=== PATIENT | male | born 1955 | race African-American/Black ===

== ENCOUNTER 2018-01-01 23:34 | Emergency (ER) | payer OTHER ==
[~2018-01-01] VITALS: Ht 188 cm; Wt 117.9 kg
[~2018-01-01 23:34] MED LIST: AMLO2.5T PO; ASPI-1169 PO; BACL10TA PO; SIMV20TA6 PO
--- NOTE | 2018-01-02 00:22 | NUR ---
PT SPEAKING WITH BELÉN
--- NOTE | 2018-01-02 00:58 | NUR ---
DR ROMERO ASKED FOR RN TO ADD PSYCH EVAL ORDER SET; ORDERS PLACED.
--- NOTE | 2018-01-02 01:10 | NUR ---
PTAMBULATORY TOER BED 10. BIBSELF C/O +SI WITHOUT PLAN, HEARING VOICES. PT PLACED ON DRY CANS BACK TENDER. VSS/RESP EVEN UNLABORED/NAD NOTED/SKIN WARM AND DRY/AFEBRILE/DENIES N-V-D/AOX4. AWAITNG MD GALARZA.
--- NOTE | 2018-01-02 01:14 | NUR ---
SUPERVISOR POLE YARD AT BEDSIDE FOR BLOOD DRAW
[2018-01-02 01:16] LABS: APPEARANCE,URINE CLEAR (CLEAR); BILIRUBIN,URINE NEGATIVE (NEGATIVE); BLOOD, URINE NEGATIVE Ery/uL (NEGATIVE); COLOR,URINE YELLOW (YELLOW); KETONES,URINE NEGATIVE (NEGATIVE); LEUKOCYTE ESTERASE ,URINE NEGATIVE (NEGATIVE); NITRITE, URINE NEGATIVE (NEGATIVE); PH,URINE 5.5 (5.0-8.0); PROTEIN,URINE 1+ mg/dl (NEGATIVE); UGLUCOSE NEGATIVE (NEGATIVE); UROBILINOGEN,URINE 0.2 EU/dL (0.2)
--- NOTE | 2018-01-02 01:17 | NUR ---
URINE SPECIMEN OBTAINED EARLIER AND SENT TO THE LAB.
[2018-01-02 01:22] LABS: RBC,URINE NONE SEEN /HPF (0-2); WBC,URINE 0-2 /HPF (0-3)
[2018-01-02 01:23] LABS: BACTERIA,URINE None seen /HPF (None Seen); SQUAMOUS EPITHELIAL CELL,UR Few /HPF (None Seen)
[2018-01-02 01:29] LABS: BASOPHILS # (AUTO) 0.1 /CMM (0.0-0.2); EOSINOPHILS % (AUTO) 1.4 % (0.0-6.0); HEMATOCRIT 46 % (39-51); HEMOGLOBIN 14.9 g/dL (13.5-17.5); LYMPHOCYTES # (AUTO) 1.4 /CMM (0.8-4.8); LYMPHOCYTES % (AUTO) 21.9 % (20.0-44.0); MEAN CORPUSCULAR HEMOGLOBIN 28 PG (26.0-33.0); MEAN CORPUSCULAR HGB CONC 33 g/dl (31.0-36.0); MEAN CORPUSCULAR VOLUME 85 fL (80-96); MONOCYTES # (AUTO) 0.6 /CMM (0.1-1.30); MONOCYTES % (AUTO) 8.9 % (2.0-12.0); NEUTROPHILS # (AUTO) 4.4 /CMM (1.8-8.9); NEUTROPHILS % (AUTO) 65.8 % (43.0-81.0); PLATELET COUNT (AUTO) 189 /CMM (150-450); RDW COEFFICIENT OF VARIATION 13.7 (11.5-15.0); RED BLOOD CELL COUNT(AUTO) 5.38 MIL/uL (4.5-6.0); WHITE BLOOD COUNT (AUTO) 6.6 K/uL (4.3-11.0)
[2018-01-02 01:38] LABS: CALCIUM, SERUM 9.2 mg/dL (8.5-10.1); CREATININE 1.5 mg/dL (0.6-1.3)
[2018-01-02 01:44] LABS: ALBUMIN 4.2 g/dL (3.4-5.0); BILIRUBIN,DIRECT 0.1 mg/dL (0.0-0.2); BILIRUBIN,TOTAL 0.7 mg/dL (0.2-1.0); TOTAL PROTEIN, SERUM 8.3 g/dL (6.4-8.2)
--- NOTE | 2018-01-02 02:42 | NUR ---
C/B FR [facility] ACCEPTED AT [facility] [address] CALL BRYCE, TON CONTAINER FILLER [phone]. [address] DR. ROSAS.
--- NOTE | 2018-01-02 02:55 | NUR ---
CALLED [facility] OFFICE BOOKKEEPER 90 MINS. TRIP [id number]
[2018-01-02 03:19] VITALS: BP 149/92
--- NOTE | 2018-01-02 03:20 | NUR ---
REPORT CALLED TO BRIANNA AT [facility] FOR JANIE.
--- NOTE | 2018-01-02 04:00 | NUR ---
REPORT GIVEN TO SALONI TORO FOR TRANSPORT TO [place].
== END 2018-01-02 04:03 ==
LOC: ER 23:35
DX: R45.851 Suicidal ideations (principal); R44.0 Auditory hallucinations; F20.9 Schizophrenia, unspecified; I10 Essential (primary) hypertension; E11.9 Type 2 diabetes mellitus without complications; G89.29 Other chronic pain; F17.200 Nicotine dependence, unspecified, uncomplicated; F60.0 Paranoid personality disorder; Z60.2 Problems related to living alone; Z79.82 Long term (current) use of aspirin; Z79.899 Other long term (current) drug therapy
CPT/HCPCS: 36415; 80048; 80076; 80305; 81001; 85025; 99285; A4606; G0480; Z7610; 81000-TC